=== PATIENT | female | born 1985 | race Caucasian/White ===

== ENCOUNTER 2020-02-16 06:16 | Emergency (ER) | payer MEDICARE ==
[~2020-02-16] VITALS: Ht 175.3 cm; Wt 72.6 kg
[2020-02-16] MEDS ORDERED: NEUPRO1 EACH TOPICAL (06:25)
[2020-02-16] MEDS ORDERED: ZOLOFT100 MG PO (06:26)
[2020-02-16] MEDS ORDERED: ADDERALL 20 MG20 M1 PO (06:26)
[2020-02-16] MEDS ORDERED: NORVASC2.5 MG PO (06:26)
[2020-02-16 06:27] VITALS: Ht 175.3 cm; Wt 72.6 kg
[2020-02-16 06:55] LABS: BASOPHILS 0.4 % (0-2); EOSINOPHILS 1.1 % (0-7); HEMATOCRIT 33.3 % (36.0-48.0); HEMOGLOBIN 10.8 g/dL (12-16); IMMATURE GRANULOCYTES 0.2 % (0-5); MCH 30.5 pg (26.0-34.0); MCHC 32.4 g/dL (31.0-37.0); MCV 94.1 fL (80.0-100.0); MEAN PLATELET VOLUME 11.4 fL (7.4-10.4); MONOCYTES 8.2 % (2-11); NEUTROPHILS 48.1 % (40-80); PLATELET COUNT 268 10x3/uL (130-400); RBC 3.54 10x6/uL (4.00-5.40); WBC 5.2 10x3/uL (4.8-10.8)
[2020-02-16 07:02] LABS: CALC OSMOLALITY 270 mosm/kg (275-300); CALCIUM 8.5 mg/dL (8.5-10.1); CARBON DIOXIDE 24.4 mmol/L (21.0-32.0); CHLORIDE - SERUM 103 mmol/L (98-107); CREATININE - SERUM 0.8 mg/dL (0.6-1.3); GLUCOSE 93 mg/dL (74-106); POTASSIUM - SERUM 3.7 mmol/L (3.5-5.1); SODIUM 135 mmol/L (136-145); UREA NITROGEN 16 mg/dL (7-18); eGFR NON AFRICAN AMERICAN 86 mL/min (90-120)
[2020-02-16 07:16] LABS: HCG URINE NEGATIVE (NEGATIVE)
[2020-02-16 07:17] LABS: ALBUMIN 3.6 g/dL (3.4-5.0); ALKALINE PHOSPHATASE 48 U/L (30-120); ALT (SGPT) 17 U/L (10-68); BILIRUBIN - TOTAL 0.27 mg/dL (0.2-1.3); CREATINE KINASE 123 UL (21-215); LIPASE 100 U/L (73-393); MAGNESIUM - SERUM 1.7 mg/dL (1.8-2.4); PRO BNP 33 pg/mL (0-125); PROTEIN - SERUM 7.7 g/dL (6.4-8.2); THYROID STIMULATING HORMONE 1.03 uIU/mL (0.36-3.74)
[2020-02-16 07:18] LABS: C-REACTIVE PROTEIN < 0.2 mg/dL (0.0-0.9); TROPONIN-I < 0.017 ng/mL (0.000-0.060)
[2020-02-16 07:29] LABS: BILIRUBIN NEGATIVE (NEGATIVE); GLUCOSE NEGATIVE (NEGATIVE); KETONE NEGATIVE (NEGATIVE); NITRITE NEGATIVE (NEGATIVE); SPECIFIC GRAVITY 1.015 (1.005-1.020); UROBILINOGEN NORMAL (NORMAL)
[2020-02-16 07:30] LABS: BACTERIA NONE SEEN /hpf (NEGATIVE); EPITHELIAL CELLS RARE /hpf (0-5); RED CELLS - URINE 0-5 /hpf (0-5); WHITE CELLS - URINE RARE /hpf (NEGATIVE)
[2020-02-16 08:10] VITALS: BP 141/105
== END 2020-02-16 08:12 | disposition home or self-care (01) ==
LOC: D.ER 06:16
PROVIDERS: Family Medicine
DX: F41.9 Anxiety disorder, unspecified (principal); R20.0 Anesthesia of skin; R07.89 Other chest pain; I10 Essential (primary) hypertension; G25.81 Restless legs syndrome